=== PATIENT | male | born 1940 | race Caucasian/White ===

== ENCOUNTER 2020-06-01 07:27 | Day surgery (SDC) | payer OTHER ==
[2020-06-01] VITALS (13 sets, daily range): BP systolic 105–134; BP diastolic 61–84
[~2020-06-01] VITALS: Ht 188 cm; Wt 97.5 kg
[2020-06-01] MEDS ORDERED: FLEC100T35 PO (08:01)
[2020-06-01] MEDS ORDERED: POTA10TA19 PO (08:01)
[2020-06-01] MEDS ORDERED: LISI1TAB51 PO (08:01)
[2020-06-01] MEDS ORDERED: ATOR40TA14 PO (08:01)
[2020-06-01] MEDS ORDERED: XARELTO PO (08:01)
[2020-06-01] MEDS ORDERED: FLEC100T2 PO (08:01)
[2020-06-01] MEDS ORDERED: MIDAZolam 1mg/ml 10ml vial IV ONE (08:20)
[2020-06-01] MEDS ORDERED: atropine 0.1mg/ml 10ml syringe IV ONE (08:20)
[2020-06-01] MEDS ORDERED: fentaNYL/PF 50MCG/1 ML 2ML syringe IV ONE (08:20)
[2020-06-01 08:42] LABS: BASOPHILS # (AUTO) 0.1 X10'3 (0-0.2); BASOPHILS % (AUTO) 0.6 % (0-1); EOSINOPHILS # (AUTO) 0.1 X10'3 (0-0.9); EOSINOPHILS % (AUTO) 0.5 % (0-6); HEMATOCRIT 42.6 % (42.0-52.0); HEMOGLOBIN 14.5 g/dl (14.0-17.9); LYMPHOCYTES # (AUTO) 1.6 X10'3 (1.1-4.8); LYMPHOCYTES % (AUTO) 14.2 % (21-51); MEAN CORPUSCULAR HEMOGLOBIN 33.2 PG (27.0-31.0); MEAN CORPUSCULAR VOLUME 97.6 FL (78-98); MEAN PLATELET VOLUME 8.8 FL (7.4-10.4); MONOCYTES # (AUTO) 0.9 X10'3 (0-0.9); MONOCYTES % (AUTO) 8.7 % (2-12); NEUTROPHILS # (AUTO) 8.3 X10'3 (1.8-7.7); PLATELET COUNT 190 X10'3 (140-440); RED BLOOD COUNT 4.36 X10'6 (4.70-6.10); RED CELL DISTRIBUTION WIDTH 14.4 % (11.5-14.5)
[2020-06-01 08:46] LABS: ALBUMIN 3.4 G/DL (3.4-5.0); ANION GAP 11 (8-16); BLOOD UREA NITROGEN 32 MG/DL (7-18); BUN/CREATININE RATIO 21.1 (5.4-32.0); CALCIUM 9.5 MG/DL (8.5-10.1); CHLORIDE 105 MMOL/L (99-107); CREATININE 1.52 MG/DL (0.60-1.10); GLUCOSE 110 MG/DL (70-104); MAGNESIUM 1.5 MG/DL (1.5-2.4); POTASSIUM 4.2 MMOL/L (3.5-5.1); SODIUM 139 MMOL/L (135-145); TOTAL CARBON DIOXIDE 23.4 MMOL/L (24-32); eGFR 45 ML/MIN
== END 2020-06-01 10:55 | disposition home or self-care (01) ==
LOC: SSTAY O 07:27
PROVIDERS: ATTEND Internal Medicine Cardiovascular Disease
DX: I48.91 Unspecified atrial fibrillation (principal); E78.00 Pure hypercholesterolemia, unspecified; I25.10 Atherosclerotic heart disease of native coronary artery without angina pectoris; E11.22 Type 2 diabetes mellitus with diabetic chronic kidney disease; I12.9 Hypertensive chronic kidney disease with stage 1 through stage 4 chronic kidney disease, or unspecified chronic kidney disease; N18.4 Chronic kidney disease, stage 4 (severe); Z98.890 Other specified postprocedural states; Z82.49 Family history of ischemic heart disease and other diseases of the circulatory system; Z82.3 Family history of stroke; Z81.8 Family history of other mental and behavioral disorders; Z79.899 Other long term (current) drug therapy; Z79.82 Long term (current) use of aspirin
CPT/HCPCS: 36415; 80048; 83735; 85025; 85610; 92960; 93005; 94760; J2250; J3010

== ENCOUNTER 2020-08-31 07:47 | Day surgery (SDC) | payer OTHER ==
[~2020-08-31] VITALS: Ht 185.4 cm; Wt 94.9 kg
[2020-08-31] VITALS (13 sets, daily range): BP systolic 107–133; BP diastolic 57–79
[~2020-08-31 07:47] MED LIST: ATOR40TA14 PO; FLEC100T2 PO; FLEC100T35 PO; LISI1TAB51 PO; POTA10TA19 PO; XARELTO PO
[2020-08-31] MEDS ORDERED: fentaNYL/PF 50MCG/1 ML 2ML syringe IV ONE (08:25)
[2020-08-31] MEDS ORDERED: normal saline 1000ml 1,000 ML IV SCH (08:25)
[2020-08-31] MEDS ORDERED: MIDAZolam 1mg/ml 10ml vial IV ONE (08:25)
[2020-08-31] MEDS ORDERED: ACET-1008 PO (09:22)
[2020-08-31] MEDS ORDERED: AMIO100T4 PO (09:22)
[2020-08-31] MEDS ORDERED: RIVA20TA PO (09:22)
[2020-08-31] MEDS ORDERED: AMIO200T27 PO (09:23)
[2020-08-31 09:54] LABS: BASOPHILS # (AUTO) 0.1 X10'3 (0-0.2); BASOPHILS % (AUTO) 0.6 % (0-1); EOSINOPHILS # (AUTO) 0.1 X10'3 (0-0.9); EOSINOPHILS % (AUTO) 0.7 % (0-6); HEMATOCRIT 42.7 % (42.0-52.0); HEMOGLOBIN 14.4 g/dl (14.0-17.9); LYMPHOCYTES # (AUTO) 1.4 X10'3 (1.1-4.8); LYMPHOCYTES % (AUTO) 16.2 % (21-51); MEAN CORPUSCULAR HEMOGLOBIN 33.7 PG (27.0-31.0); MEAN CORPUSCULAR HGB CONC 33.9 g/dL (33.0-36.5); MEAN CORPUSCULAR VOLUME 99.5 FL (78-98); MEAN PLATELET VOLUME 9.6 FL (7.4-10.4); MONOCYTES # (AUTO) 0.7 X10'3 (0-0.9); MONOCYTES % (AUTO) 7.3 % (2-12); NEUTROPHILS # (AUTO) 6.7 X10'3 (1.8-7.7); NEUTROPHILS % (AUTO) 75.2 % (42-75); PLATELET COUNT 150 X10'3 (140-440); RED BLOOD COUNT 4.29 X10'6 (4.70-6.10); RED CELL DISTRIBUTION WIDTH 14.5 % (11.5-14.5); WHITE BLOOD COUNT 8.9 X10'3 (4.5-11.0)
[2020-08-31 10:06] LABS: ALBUMIN 3.7 G/DL (3.4-5.0); ANION GAP 13 (8-16); BLOOD UREA NITROGEN 31 MG/DL (7-18); BUN/CREATININE RATIO 19.7 (5.4-32.0); CHLORIDE 106 MMOL/L (99-107); CREATININE 1.57 MG/DL (0.60-1.10); GLUCOSE 94 MG/DL (70-104); MAGNESIUM 1.6 MG/DL (1.5-2.4); POTASSIUM 4.3 MMOL/L (3.5-5.1); SODIUM 142 MMOL/L (135-145); TOTAL CARBON DIOXIDE 22.6 MMOL/L (24-32); eGFR 43 ML/MIN
== END 2020-08-31 10:50 | disposition home or self-care (01) ==
LOC: SSTAY O 07:47
PROVIDERS: ATTEND Internal Medicine Cardiovascular Disease
DX: I48.91 Unspecified atrial fibrillation (principal); I25.10 Atherosclerotic heart disease of native coronary artery without angina pectoris; E11.22 Type 2 diabetes mellitus with diabetic chronic kidney disease; I12.9 Hypertensive chronic kidney disease with stage 1 through stage 4 chronic kidney disease, or unspecified chronic kidney disease; N18.4 Chronic kidney disease, stage 4 (severe); E78.00 Pure hypercholesterolemia, unspecified; Z79.899 Other long term (current) drug therapy; Z98.890 Other specified postprocedural states; Z72.89 Other problems related to lifestyle; Z82.49 Family history of ischemic heart disease and other diseases of the circulatory system
CPT/HCPCS: 36415; 80048; 83735; 85025; 85610; 92960; 93005; 94799; J2250; J3010; J7030

== ENCOUNTER 2022-02-18 15:18 | Emergency (ER) | payer OTHER ==
[~2022-02-18] VITALS: Ht 188 cm; Wt 100.0 kg
[~2022-02-18 15:18] MED LIST changes: +ACET-1008 PO; +AMIO200T27 PO; -FLEC100T2 PO; -FLEC100T35 PO; +POTA-192 PO; -POTA10TA19 PO; +RIVA20TA PO; -XARELTO PO
[2022-02-18 16:27] LABS: CLARITY,URINE BLOODY (Clear); COLOR,URINE RED (Yellow); UA COLLECTION TYPE NON-SPECIFIED
[2022-02-18 16:39] LABS: BACTERIA,URINE NONE SEEN /HPF (Neg); MUCUS STRANDS NONE SEEN /LPF (Neg); RBC,URINE TNTC /HPF (0-2); SQUAMOUS EPITHELIAL CELL,UR NONE SEEN /LPF (FEW); WBC,URINE 0-4 /HPF (0-4)
[2022-02-18 19:08] LABS: BASOPHILS # (AUTO) 0.1 X10'3 (0-0.2); BASOPHILS % (AUTO) 0.5 % (0-1); EOSINOPHILS % (AUTO) 0.4 % (0-6); HEMATOCRIT 39.7 % (42.0-52.0); HEMOGLOBIN 13.4 g/dl (14.0-17.9); LYMPHOCYTES # (AUTO) 1.6 X10'3 (1.1-4.8); MEAN CORPUSCULAR HEMOGLOBIN 33.4 PG (27.0-31.0); MEAN CORPUSCULAR HGB CONC 33.8 g/dL (33.0-36.5); MEAN CORPUSCULAR VOLUME 98.9 FL (78-98); MEAN PLATELET VOLUME 9.2 FL (7.4-10.4); MONOCYTES # (AUTO) 0.9 X10'3 (0-0.9); NEUTROPHILS # (AUTO) 8.3 X10'3 (1.8-7.7); NEUTROPHILS % (AUTO) 76.1 % (42-75); PLATELET COUNT 163 X10'3 (140-440); RED BLOOD COUNT 4.01 X10'6 (4.70-6.10); RED CELL DISTRIBUTION WIDTH 14.1 % (11.5-14.5); WHITE BLOOD COUNT 10.9 X10'3 (4.5-11.0)
[2022-02-18 19:27] LABS: APTT 30 SECONDS (22-32)
[2022-02-18 20:03] VITALS: BP 157/91
== END 2022-02-18 20:06 | disposition home or self-care (01) ==
LOC: ER 15:20
DX: R31.9 Hematuria, unspecified (principal); I48.91 Unspecified atrial fibrillation; Z79.899 Other long term (current) drug therapy; Z79.01 Long term (current) use of anticoagulants
CPT/HCPCS: 36415; 81001; 85025; 85610; 85730; 99283

== ENCOUNTER 2023-08-29 22:02 | Emergency (ER) | payer OTHER ==
[~2023-08-29] VITALS: Ht 185.4 cm; Wt 93.8 kg
[2023-08-29 22:11] VITALS: BP 173/90; PULSE 69; RESP 16; TEMP 99.5; O2SAT 96
== END 2023-08-29 22:20 | disposition home or self-care (01) ==
LOC: ER 22:02
DX: I10 Essential (primary) hypertension (principal); I48.91 Unspecified atrial fibrillation
CPT/HCPCS: 99281

== ENCOUNTER → 2025-02-06 | Emergency (ER) | payer OTHER ==
[~2025-02-06] VITALS: Ht 185.4 cm; Wt 67.9 kg
[2025-02-06 10:47] VITALS: TEMP 98.9
--- NOTE | 2025-02-06 11:27 | Physician Documentation ---
History of Present Illness ~ Chief Complaint: Rib pain Stated Complaint: FALL YESTERDAY ON THINNERS NO HEAD STRIKE Time Seen by MD: 11:21 Tetanus within 5 Years?: Yes Allergies: Coded Allergies: No Known Allergies (Unverified , 08/29/23) Active Prescriptions See Medication Reconciliation Form. Medication Reconciliation Scheduled Amiodarone HCl (Amiodarone HCl), 1 TAB PO DAILY, (Reported) Atorvastatin Calcium (Lipitor), 1 TAB PO HS, (Reported) Lisinopril/Hydrochlorothiazide (Lisinopril-Hctz 20-12.5 mg Tab), 1 TAB PO DAILY, (Reported) Potassium Chloride (Klor-Con), 1 TAB PO DAILY, (Reported) Rivaroxaban (Xarelto), 1 TAB PO HS, (Reported) Scheduled PRN Acetaminophen (Tylenol), 2 TAB PO QDAY PRN PRN for pain or fever, (Reported) Past Medical History Past Medical History: Atrial Fibrillation Past Surgical History: noncontributory Alcohol Use: None Drug Use: none Review of Systems All Other Systems at this time: Reviewed and Negative Physical Exam Vital Signs: RN Vital Signs have been reviewed: Yes, Temperature: 98.9, Source: Temporal, Heart Rate: 57, Respiratory Rate: 15, BP: 155/77, Pulse Oximetry: 95, Weight: 67.900 Physical Exam Well-appearing no distress sitting comfortably in bed sitting upright head atraumatic Pulmonary clear to auscultation bilaterally Left lateral chest wall tenderness no ecchymosis and no deformity No CT or L-spine tenderness abdomen is soft nontender back atraumatic Neuro awake alert oriented normal gait Progress Results/Orders Results/Orders Orders - KARSTEN HAYES MD, [facility] (02/06/25 10:51) Ct Chest (02/06/25 11:59) Completed Orders - KARSTEN HAYES MD, [facility] (02/06/25 10:51) Vital Signs 02/06/25 10:47 Temp 98.9 Pulse 57 Resp 15 B/P (MAP) 155/77 Pulse Ox 95 EKG/XRAY/CT/US/VASC/MRI Chest X-Ray : Additional Comments I independently interpreted chest x-ray shows multiple left-sided rib fractures no pneumothorax no consolidation Medical Decision Making Additional Comment Pneumothorax, rib fracture pulmonary contusion Departure Disposition: LEFT AGAINST MEDICAL ADVICE Impression: Primary Impression: Fracture of rib Qualified Codes: S22.42XA - Multiple fractures of ribs, left side, initial encounter for closed fracture Additional Impression Text 84-year-old male presenting for fall onto left chest wall while fishing. His vitals are all unremarkable. Pulmonary exam reassuring. Tenderness to his left lateral chest wall. History rib fractures seen on the plain films. I did recommend CT scan due to high risk for progression to pneumonia however patient is adamant that he does not want to stay in the hospital. He already has Boulevard at home for shoulder issues and he plans to start taking these consistently. He agrees that he as an alternative will follow up with his primary care physician for recheck Additional Instructions: You have multiple rib fractures. The standard treatment for this is admission to the hospital for observation pain control and further characterization with a CT scan. However your preference is to not stay in the hospital and to not perform CT scan. The next best alternative is using home incentive spirometer, taking your Boulevard 5 mg every 6 hours as needed. Follow up with your PCP within the next 7 days and return to the emergency department if you develop any difficulty breathing worsening cough or fevers Referrals: NO PRIMARY CARE PROVIDER (PCP) Signature Scribe Signature: No scribe Attestation: No scribe KARSTEN HAYES MD February 06, 2025 11:26
--- NOTE | 2025-02-06 11:55 | RADIOLOGY REPORT ---
[facility] EXAMINATION: DI RIBS,UNILAT INDICATION: Trauma COMPARISON: None TECHNIQUE: Frontal view of the chest and 3 views of the left ribs FINDINGS/IMPRESSION: Mildly displaced left 3rd 4th and 5th rib fractures. Opacity in the left upper lung may reflect pulmo nary contusion. Right mid lung peripheral based opacity. Further evaluation with CT is recommended.
[2025-02-06 13:10] VITALS: BP 134/68; PULSE 67; RESP 12; O2SAT 96
== END | disposition left against medical advice (07) ==
LOC: ER 10:44
DX: S22.42XA Multiple fractures of ribs, left side, initial encounter for closed fracture (principal); I48.91 Unspecified atrial fibrillation; W19.XXXA Unspecified fall, initial encounter; Y93.89 Activity, other specified; Y92.89 Other specified places as the place of occurrence of the external cause; Y99.8 Other external cause status
CPT/HCPCS: 71100; 99283